=== PATIENT | male | born 1980 | race Two or more races ===

== ENCOUNTER 2018-03-24 13:09 | Emergency (ER) | payer SELFPAY ==
[~2018-03-24] VITALS: Ht 170.2 cm; Wt 68.0 kg
[2018-03-24] MEDS ORDERED: ACETAMINOPHEN ES 500 MG TABLET ONE (13:27)
--- NOTE | 2018-03-24 13:29 | NUR ---
MEDICATION ORDERED WAS GIVEN
[2018-03-24] MEDS ORDERED: ACETAMINOPHEN 325 MG TABLET PO ONE (13:30)
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
--- NOTE | 2018-03-24 14:24 | NUR ---
PT TO RADIOLOGY FOR NASAL BONES XRAY VIA WHEELCHAIR.
--- NOTE | 2018-03-24 15:26 | NUR ---
Patient discharged to home in stable condition. Written and verbal after care instructions given. Patient verbalizes understanding of instruction.
[2018-03-24 15:27] VITALS: BP 136/84
== END 2018-03-24 15:28 | disposition home or self-care (01) ==
LOC: ER 13:12
DX: J34.89 Other specified disorders of nose and nasal sinuses (principal); V49.59XA Passenger injured in collision with other motor vehicles in traffic accident, initial encounter; Y93.89 Activity, other specified; Y92.413 State road as the place of occurrence of the external cause; Y99.8 Other external cause status
CPT/HCPCS: 70160; 99284; A4606; Z7610